=== PATIENT | male | born 1940 | race Caucasian/White ===

== ENCOUNTER 2019-10-02 03:30 | Emergency (ER) | payer MEDICARE | END 2019-10-02 04:58 | disposition home or self-care (01) | LOC: EDBD 03:30 → ERS 03:30 | DX: R09.81 Nasal congestion (principal); E11.9 Type 2 diabetes mellitus without complications; I10 Essential (primary) hypertension; E78.5 Hyperlipidemia, unspecified; Z87.891 Personal history of nicotine dependence | CPT/HCPCS: 99281 ==